=== PATIENT | female | born 1995 | race Two or more races ===

== ENCOUNTER 2024-08-12 19:02 | Emergency (ER) | payer MEDICAID, OTHER ==
[~2024-08-12] VITALS: Ht 165.1 cm; Wt 107.7 kg
--- NOTE | 2024-08-12 21:25 | ED.PDOC ---
SOB-HPI HPI Comments This is a 28-year-old female presents to the ED chief complaint cough x4 days she reports wheezing, and cough reports no history of asthma daughter recently positive for influenza A patient denies chest pain difficulty breathing, shortness of breath Chief Complaint: Flu like Time Seen by MD: 19:32 Reviewed notes: Nurses Notes, Medications, Allergies Information Source: Patient Mode of Arrival: Ambulatory Past Medical History PAST MEDICAL HISTORY: Denies Surgical History: Denies all surgeries [employer] History: No Pertinent [employer] History Family History Family History: Reviewed,noncontributory to illness Social History Smoker: Non-Smoker Alcohol: Denies ETOH Use Drugs: Denies Drug Use Constitutional: reports: fever; denies: chills, diaphoresis, fatigue, malaise, sweats, weakness, others EENTM: reports: nasal discharge; denies: blurred vision, double vision, ear bleeding, ear discharge, ear drainage, ear pain, ear ringing, eye pain, eye redness, hearing loss, mouth pain, mouth swelling, nose bleeding, nose congestion, nose pain, photophobia, tearing, throat pain, throat swelling, voice changes, others Respiratory: reports: cough, wheezing; denies: hemoptysis, orthopnea, SOB at rest, shortness of breath, SOB with excertion, stridor, others Cardiovascular: denies: chest pain, dizzy spells, diaphoresis, Dyspnea on exertion, edema, irregular heart beat, left arm pain, lightheadedness, palpitations, PND, syncope, others Gastrointestinal: denies: abdomen distended, abdominal pain, blood streaked bowels, constipated, diarrhea, dysphagia, difficulty swallowing, hematemesis, melena, nausea, poor appetite, poor fluid intake, rectal bleeding, rectal pain, vomiting, others Genitourinary: denies: abnormal vagina bleeding, burning, dyspareunia, dysuria, flank pain, frequency, hematuria, incontinence, pain, , vagina discharge, urgency, others Neurological: denies: dizziness, fainting, headache, left sided numbness, left sided weakness, numbness, paresthesia, pre-existing deficit, right sided numbness, right sided weakness, seizure, speech problems, tingling, tremors, weakness, others Musculoskeletal: denies: back pain, gout, joint pain, joint swelling, muscle pain, muscle stiffness, neck pain, others Integumetry: denies: bruises, change in color, change in hair/nails, dryness, laceration, lesions, lumps, rash, wounds, others Allergic/Immunocompromised: denies: Difficulty Healing, Frequent Infections, Hives, Itching, others Endocrine: denies: excessive hunger, excessive sweating, excessive thirst, excessive urination, flushing, intolerance to cold, intolerance to heat, unexplained weight gain, unexplained weight loss, others Psychiatric: denies: anxiety, bipolar disorder, depression, hopeless, panic disorder, schizophrenia, sleepless, suicidal, others Physical Exam General Appearance: No Apparent Distress, Normal HEENT: Normal ENT Inspection, Pharynx Normal, TMs Normal Neck: Full Range of Motion, Non-Tender, Normal, Normal Inspection Respiratory: Chest Non-Tender, Expiration, Inspiration, No Accessory Muscle Use, No Respiratory Distress, Normal Breath Sounds, Wheezing Cardiovascular: No Edema, No JVD, No Murmur, No Gallop, Normal Peripheral Pulses, Regular Rate/Rhythm Breast Exam: Deferred Gastrointestinal: No Organomegaly, Non Tender, No Pulsatile Mass, Normal Bowel Sounds, Soft Genitalia: Deferred Pelvic: Deferred Rectal: Deferred Extremities: Normal capillary refill, Normal inspection, Normal range of motion, Non-tender, No pedal edema Musculoskeletal : Apperance: Normal Neurologic: Alert, 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 Was a procedure done?: No Differential Dx Differential Diagnosis: Asthma, Bronchitis, Pneumonia, Sinusitis, Allergic Rhinitis X-Ray, Labs, Meds, VS Vital Signs Date Time Temp Pulse Resp B/P (MAP) Pulse Ox O2 Delivery O2 Flow Rate FiO2 08/12/24 21:50 18 98 Room Air* 0 21 08/12/24 21:48 98.6 88 20 120/87 (98) 96 98.6 08/12/24 21:48 88 20 96 Room Air 08/12/24 19:37 96.9 97 20 115/90 (98) 92 Current Medications Medications (Trade) Dose Ordered Sig/Sri Route Start Time Stop Time Status Last Admin Ipratropium Harrison (Atrovent Medneb) 0.5 mg ONCE ONCE NEB 08/12/24 21:30 08/12/24 21:31 DC 08/12/24 21:49 Albuterol (Ventolin Medneb) 2.5 mg ONCE ONCE NEB 08/12/24 21:30 08/12/24 21:31 DC 08/12/24 21:49 Methylprednisolone Sodium Succinate (Solu Medrol) 125 mg ONCE ONCE IM 08/12/24 21:30 08/12/24 21:31 DC 08/12/24 21:40 X-Ray, Labs, Meds, VS Comment Patient received nebulizer treatment x1 with improvement lung sounds clear equal bilateral. Patient requesting discharge at this time.. We will start patient on azithromycin and refill her albuterol. He is to follow up with PCP in 2-3 days as necessary ER return precautions given patient indicated understanding. Time of 1ST Reevaluation: 22:08 Reevaluation 1ST: Improved Patient Education/Counseling: Diagnosis, Treatment, Prognosis, Need For Follow Up Family Education/Counseling: Diagnosis, Treatment, Prognosis, Need For Follow Up Departure 1 Departure Time of Disposition: 22:08 Impression: Primary Impression: Lower respiratory infection (e.g., bronchitis, pneumonia, pneumonitis, pulmonitis) Disposition: 01 HOME / SELF CARE / HOMELESS Condition: Stable e-Prescriptions Albuterol Sulfate (VENTOLIN MDI) 90 Mcg Ih 180 MCG IN Q6HP PRN for 30 Days, #1 INHALER Prov: SALVADOR PRATTP 08/12/24 Azithromycin (Azithromycin) 250 Mg Tab 250 MG PO DAILY MDD 500 for 5 Days, #6 TAB 0 Refills 2 TABLETS ORALLY ON DAY ONE, THEN 1 TABLET ORALLY DAILY FOR 4 DAYS Prov: SALVADOR PRATT 08/12/24 Discharged With: Spouse Critical Care Note Critical Care Time?: No Stability Stability form required: No Heart Score Heart Score: Heart Score Response (Comments) Value History N/A 0 EKG N/A 0 Age <45 0 Risk Factors N/A 0 Troponin N/A 0 Total 0 SALVADOR PRATT Aug 12, 2024 21:25
[2024-08-12] MEDS: methylPREDNISolone SOD SUCC 125 MG/2 ML VL IM ONE (21:40)
[2024-08-12 21:48] VITALS: BP 120/87; PULSE 88; TEMP 98.6
[2024-08-12] MEDS: ALBUTEROL SULF 2.5 MG/0.5ML(0.5%) NEB SOLN NEB ONE (21:49)
[2024-08-12] MEDS: IPRATROPIUM BROM 0.5 MG/2.5ML INH SOL NEB ONE (21:49)
[2024-08-12 21:50] VITALS: RESP 18; O2SAT 98
[2024-08-12] MEDS ORDERED: ALBUAER3 IN (22:11)
[2024-08-12] MEDS ORDERED: AZIT-43 PO (22:11)
== END 2024-08-12 22:30 | disposition home or self-care (01) ==
LOC: ER 19:02
DX: J22 Unspecified acute lower respiratory infection (principal)
CPT/HCPCS: 94640; 96372; 99283; J2919